=== PATIENT | female | born 1955 | race Caucasian/White ===

== ENCOUNTER 2020-09-13 09:14 | Outpatient (CLI) | payer MEDICARE | END 2020-09-13 09:15 | disposition home or self-care (01) | LOC: PET 09:14 | PROVIDERS: ATTEND Internal Medicine Hematology & Oncology | DX: C50.111 Malignant neoplasm of central portion of right female breast (principal) | CPT/HCPCS: 78815; A9552 ==

== ENCOUNTER 2020-12-27 | Outpatient (CLI) | payer MEDICARE | END 2020-12-27 14:44 | disposition home or self-care (01) | DX: Z13.820 Encounter for screening for osteoporosis (principal); Z78.0 Asymptomatic menopausal state; M85.89 Other specified disorders of bone density and structure, multiple sites | CPT/HCPCS: 77080 ==

== ENCOUNTER 2022-11-10 10:29 | Outpatient (CLI) | payer MEDICARE | END 2022-11-10 10:30 | disposition home or self-care (01) | LOC: CT 10:29 | DX: L03.211 Cellulitis of face (principal); Z87.828 Personal history of other (healed) physical injury and trauma; Z98.890 Other specified postprocedural states | CPT/HCPCS: 70450; 70486 ==

== ENCOUNTER 2024-02-03 14:03 | Outpatient (CLI) | payer MEDICARE | END 2024-02-03 14:04 | disposition home or self-care (01) | LOC: SCSRAD 14:03 | PROVIDERS: ATTEND Nurse Practitioner Family | DX: S89.91XA Unspecified injury of right lower leg, initial encounter (principal) ==